=== PATIENT | male | born 1990 | race Caucasian/White ===

== ENCOUNTER 2025-09-11 15:17 | Outpatient (CLI) | payer OTHER, SELFPAY ==
--- NOTE | 2025-09-11 15:30 | CRLHL7_ITS ---
For Patients: As a result of the Century Cures Act, medical imaging exams and procedure reports are released immediately into your electronic medical record. You may view this report before your referring provider. If you have questions, please contact your health care provider. INDICATION: Elevated prolactin, headaches. TECHNIQUE: MRI of the pituitary was performed with and without the administration of intravenous contrast. IV contrast: 20 mL Dotarem. COMPARISON: : None. FINDINGS: A 5 mm hypoenhancing pituitary gland lesion to the right of midline. There is a partially empty sella with the pituitary gland height measuring 3 mm. The infundibulum appears normal and inserts at the midline. The sella turcica is normally formed and not enlarged. The suprasellar region is within normal limits. The visualized optic chiasm is normal. No evidence of acute infarction.. No abnormal parenchymal or leptomeningeal enhancement. The brain parenchyma is unremarkable. The ventricles, sulci, and cisterns are within normal limits. Mild mucosal thickening/secretions in the paranasal sinuses. No evidence of acute orbital pathology. No significant mastoid effusion. No suspicious marrow signal abnormality. IMPRESSION: 1. A 5 mm hypoenhancing pituitary gland lesion to the right of midline, suspicious for a microadenoma. 2. Partially empty sella. 3. No acute intracranial abnormality. Dictated by Sy Leyva MD @ 09/11/2025 7:10:20 PM (Electronically Signed)
== END 2025-09-11 15:18 | disposition home or self-care (01) ==
PROVIDERS: PCP Internal Medicine; Visit Provider Internal Medicine
DX: E22.1 Hyperprolactinemia (principal); R51.9 Headache, unspecified; R79.89 Other specified abnormal findings of blood chemistry; E23.6 Other disorders of pituitary gland
CPT/HCPCS: 70553; A9575